=== PATIENT | male | born 1970 | race Hispanic/Latino ===

== ENCOUNTER 2022-08-24 21:15 | Inpatient (IN) | payer OTHER ==
[~2022-08-24] VITALS: Ht 167.6 cm; Wt 91.3 kg
[2022-08-24] MEDS ORDERED: HEPARIN 5,000 UNIT VIAL ONE (21:24)
[2022-08-24] MEDS ORDERED: TICAGRELOR 90 MG TABLET ONE (21:24)
[2022-08-24] MEDS ORDERED: NITROGLYCERIN 50MG/D5W 250ML 1 BOT ONE (21:25)
[2022-08-24] MEDS ORDERED: ASPIRIN 81MG CHEW TAB ONE (21:25)
[2022-08-24] MEDS ORDERED: HEPARIN 25,000 UNITS/250ML D5W 250 ML IV ONE (21:25)
[2022-08-24] MEDS ORDERED: ONDANSETRON 4MG INJ ONE (21:29)
[2022-08-24] MEDS ORDERED: MORPHINE 2 MG SYG ONE (21:29)
[2022-08-24] MEDS ORDERED: TICAGRELOR 90 MG TABLET PO SCH (21:30)
[2022-08-24] MEDS ORDERED: HEPARIN 5,000 UNIT VIAL IV SCH (21:30)
[2022-08-24] MEDS ORDERED: NITROGLYCERIN 0.4 MG SL TAB SL PRN (21:30)
[2022-08-24] MEDS ORDERED: ASPIRIN 81MG CHEW TAB PO ONE (21:30)
[2022-08-24] MEDS ORDERED: ONDANSETRON 4MG INJ IVP ONE (21:30)
[2022-08-24] MEDS ORDERED: NITROGLYCERIN 50MG/D5W 250ML 250 BOT IV SCH (21:30)
[2022-08-24] MEDS ORDERED: MORPHINE 2 MG SYG IVP ONE (21:30)
[2022-08-24 21:33] LABS: EOSINOPHILS % (AUTO) 2.3 % (0.0-8.0); HEMATOCRIT 51.4 % (42-54); LYMPHOCYTES % (AUTO) 28.5 % (21.0-51.0); MEAN CORPUSCULAR HEMOGLOBIN 27.1 pg (27.0-33.0); MEAN CORPUSCULAR HGB CONC 33.3 g/dL (32.0-36.0); MEAN CORPUSCULAR VOLUME 81.3 fL (79-99); MONOCYTES % (AUTO) 12.2 % (3.0-13.0); NEUTROPHILS % (AUTO) 54.8 % (40.0-77.0); PLATELET COUNT (AUTO) 305 K/uL (130-400); RED BLOOD CELL COUNT(AUTO) 6.32 MIL/uL (4.50-6.20); RED CELL DISTRIBUTION WIDTH 14.9 % (11.0-15.5); WHITE BLOOD COUNT (AUTO) 9.8 K/uL (4.8-10.8)
[2022-08-24] MEDS ORDERED: LIDOCAINE HCL 400MG/20ML VIAL ONE (21:39)
[2022-08-24] MEDS ORDERED: NITROGLYCERIN 50MG VIAL ONE (21:39)
[2022-08-24] MEDS ORDERED: HEPARIN 10,000 UNIT/10ML (1,000 UNIT/ML) VIAL ONE (21:39)
[2022-08-24] MEDS ORDERED: ATROPINE 1MG SYG IVP ONE (21:39)
[2022-08-24] MEDS ORDERED: VERAPAMIL HCL 2.5 MG/ML VIAL ONE (21:39)
[2022-08-24] MEDS ORDERED: IOHEXOL-350 75 ML VIAL IV ONE ×2 (21:39→22:41)
[2022-08-24 21:43] LABS: CREATININE 1.4 mg/dL (0.5-1.5); POTASSIUM 3.4 mmol/L (3.5-5.1)
[2022-08-24 21:44] LABS: INR 0.93 (0.85-1.15); PROTHROMBIN TIME 9.7 SEC (9.6-11.6)
[2022-08-24 21:49] LABS: ALBUMIN 4.4 g/dL (3.5-5.0); TOTAL PROTEIN, SERUM 8.3 g/dL (6.0-8.3)
[2022-08-24] MEDS ORDERED: ONDANSETRON 4MG INJ IVP PRN (22:00)
[2022-08-24] MEDS ORDERED: HEPARIN 25,000 UNITS/250ML D5W 250 ML IV SCH (22:00)
[2022-08-24] MEDS ORDERED: MORPHINE 2 MG SYG IVP PRN (22:00)
[2022-08-24 22:06] LABS: B-TYPE NATRIURETIC PEPTIDE 36 pg/mL (0-100)
[2022-08-24] MEDS ORDERED: FENTANYL CITRATE PF 50 MCG/1 ML 2ML VIAL ONE (22:08)
[2022-08-24] MEDS ORDERED: MIDAZOLAM HCL 1 MG/ML 2ML VIAL ONE ×2 (22:08→22:18)
[2022-08-24] MEDS ORDERED: EPTIFIBATIDE 2 MG/ML 10 ML VIAL IVP ONE (22:29)
[2022-08-24] MEDS ORDERED: EPTIFIBATIDE 75MG/100ML BOTTLE 100 ML IV ONE (22:29)
[2022-08-24] MEDS ORDERED: HYDRALAZINE 20MG/ML VIAL ONE (23:04)
[2022-08-24] MEDS ORDERED: LABETALOL 20MG SYG IV ONE (23:12)
[2022-08-24] MEDS ORDERED: IOHEXOL-350 50ML VIAL IV ONE (23:24)
[2022-08-25] VITALS (90 sets, daily range): BP systolic 83–161; BP diastolic 45–105
[2022-08-25] MEDS ORDERED: ACETAMINOPHEN WITH CODEINE 1 TAB TAB PO PRN
[2022-08-25] MEDS ORDERED: 0.9%NACL 1000ML 1,000 ML IV SCH
[2022-08-25] MEDS ORDERED: LABE200T7 PO (00:32)
[2022-08-25] MEDS ORDERED: LISI20TA24 PO (00:33)
[2022-08-25] MEDS: NITROGLYCERIN 50MG/D5W 250ML 1 BOT IV PRN ×4 (01:00→18:25)
[2022-08-25 04:18] LABS: MAGNESIUM 1.6 mg/dL (1.80-2.40); POTASSIUM 3.2 mmol/L (3.5-5.1)
[2022-08-25 04:30] LABS: BASOPHILS % (AUTO) 0.5 % (0.0-5.0); EOSINOPHILS % (AUTO) 0.1 % (0.0-8.0); HEMATOCRIT 44.7 % (42-54); LYMPHOCYTES % (AUTO) 6.5 % (21.0-51.0); MEAN CORPUSCULAR HEMOGLOBIN 27.3 pg (27.0-33.0); MEAN CORPUSCULAR HGB CONC 32.9 g/dL (32.0-36.0); MEAN CORPUSCULAR VOLUME 83.1 fL (79-99); MONOCYTES % (AUTO) 7.4 % (3.0-13.0); NEUTROPHILS % (AUTO) 84.6 % (40.0-77.0); PLATELET COUNT (AUTO) 245 K/uL (130-400); RED BLOOD CELL COUNT(AUTO) 5.38 MIL/uL (4.50-6.20); RED CELL DISTRIBUTION WIDTH 14.6 % (11.0-15.5); WHITE BLOOD COUNT (AUTO) 14.6 K/uL (4.8-10.8)
[2022-08-25 05:10] LABS: HEMOGLOBIN A1C 5.8 % (4.0-6.0)
[2022-08-25] MEDS ORDERED: MAGNESIUM 2GM PREMIX 50ML 50 ML IV PRN (08:00)
[2022-08-25] MEDS ORDERED: POTASSIUM CHLORIDE 20MEQ/100ML 100 ML IV PRN (08:00)
[2022-08-25] MEDS: ASPIRIN 81MG CHEW TAB PO SCH (08:01)
[2022-08-25] MEDS: TICAGRELOR 90 MG TABLET PO SCH ×2 (08:01→20:30)
[2022-08-25] MEDS: ACETAMINOPHEN WITH CODEINE 1 TAB TAB PO PRN ×2 (08:01→20:41)
[2022-08-25] MEDS: KCL 20 MEQ ERTAB PO PRN ×2 (08:09→20:31)
[2022-08-25] MEDS: ISOSORBIDE MONO 60MG SR TAB PO SCH (08:09)
[2022-08-25] MEDS ORDERED: CARVEDILOL 6.25 MG TABLET PO SCH (09:00)
[2022-08-25] MEDS ORDERED: CARVEDILOL 12.5 MG TABLET PO SCH (09:00)
[2022-08-25] MEDS ORDERED: LOSARTAN 50 MG TABLET PO SCH (09:00)
[2022-08-25] MEDS: ATORVASTATIN 40 MG TABLET PO SCH ×2 (09:10→20:30)
[2022-08-25] MEDS: POTASSIUM CHLORIDE 10% ELIXIR 20 MEQ/15 ML UDCUP PO PRN ×2 (09:10→13:45)
[2022-08-25] MEDS ORDERED: LOSARTAN 100 MG TABLET PO SCH (16:30)
[2022-08-25] MEDS ORDERED: AMLODIPINE 5 MG TAB PO SCH (16:30)
[2022-08-25 19:56] LABS: CREATININE 1.2 mg/dL (0.5-1.5); MAGNESIUM 2.2 mg/dL (1.80-2.40); POTASSIUM 3.5 mmol/L (3.5-5.1)
[2022-08-25] MEDS ORDERED: HYDROCHLOROTHIAZIDE 25 MG TABLET PO SCH (20:00)
[2022-08-25] MEDS: CARVEDILOL 12.5 MG TABLET PO SCH (20:35)
[2022-08-26] VITALS (25 sets, daily range): BP systolic 83–133; BP diastolic 47–85
[2022-08-26 03:35] LABS: HEMATOCRIT 45.5 % (42-54); MEAN CORPUSCULAR HEMOGLOBIN 27.2 pg (27.0-33.0); MEAN CORPUSCULAR VOLUME 82.6 fL (79-99); RED BLOOD CELL COUNT(AUTO) 5.51 MIL/uL (4.50-6.20); RED CELL DISTRIBUTION WIDTH 14.8 % (11.0-15.5); WHITE BLOOD COUNT (AUTO) 13.2 K/uL (4.8-10.8)
[2022-08-26 03:49] LABS: CREATININE 1.9 mg/dL (0.5-1.5); MAGNESIUM 2.3 mg/dL (1.80-2.40); POTASSIUM 4.1 mmol/L (3.5-5.1)
[2022-08-26] MEDS: ASPIRIN 81MG CHEW TAB PO SCH (08:11)
[2022-08-26] MEDS: CARVEDILOL 12.5 MG TABLET PO SCH (08:12)
[2022-08-26] MEDS: TICAGRELOR 90 MG TABLET PO SCH (08:13)
[2022-08-26] MEDS: ISOSORBIDE MONO 60MG SR TAB PO SCH (08:13)
[2022-08-26] MEDS ORDERED: CARV12.580 PO (10:53)
[2022-08-26] MEDS ORDERED: TICA90TA PO (10:53)
[2022-08-26] MEDS ORDERED: LOSA-422 PO (10:53)
[2022-08-26] MEDS ORDERED: Isosorbide Mono 60MG Sr Tab PO (10:53)
[2022-08-26] MEDS ORDERED: ASPI-1005 PO (10:53)
[2022-08-26] MEDS ORDERED: ATOR40TA69 PO (10:53)
[2022-08-26] MEDS ORDERED: LOSARTAN/HYDROCHLOROTHIAZIDE 50-12.5MG TABLET PO SCH (17:00)
== END 2022-08-26 16:25 | disposition home or self-care (01) | DRG 247 ==
LOC: EDH 21:15 → EDHIP 21:16 → EDH 21:55 → 2BH 23:56 → 2DH 08-26 11:15
PROVIDERS: ADMIT Internal Medicine Infectious Disease; ATTEND Internal Medicine Infectious Disease
PROC: 4A023N7 Measurement of Cardiac Sampling and Pressure, Left Heart, Percutaneous Approach (ICD-10-PCS; principal; 2022-08-25)
PROC: 027036Z Dilation of Coronary Artery, One Artery with Three Drug-eluting Intraluminal Devices, Percutaneous Approach (ICD-10-PCS; 2022-08-25)
PROC: B2111ZZ Fluoroscopy of Multiple Coronary Arteries using Low Osmolar Contrast (ICD-10-PCS; 2022-08-25)
PROC: B241ZZ3 Ultrasonography of Multiple Coronary Arteries, Intravascular (ICD-10-PCS; 2022-08-25)
DX: I21.09 ST elevation (STEMI) myocardial infarction involving other coronary artery of anterior wall (principal); I16.1 Hypertensive emergency; I25.10 Atherosclerotic heart disease of native coronary artery without angina pectoris; I10 Essential (primary) hypertension; E78.5 Hyperlipidemia, unspecified; E66.09 Other obesity due to excess calories; Z68.32 Body mass index [BMI] 32.0-32.9, adult
CPT/HCPCS: 36415; 71045; 80048; 80053; 80061; 83036; 83735; 83880; 84484; 85025; 85027; 85610; 85730; 87635; 92978; 92979; 93005; 93306; 93356; 93458; 99156; 99157; 99291; C1769; C9600; C9803; G0378; J0360; J0461; J1327; J1644; J2250; J2405; J3010; J3475; J3490; Q9967